=== PATIENT | male | born 1965 | race Caucasian/White ===

== ENCOUNTER 2021-03-27 18:39 | Emergency (ER) | payer OTHER ==
[~2021-03-27] VITALS: Ht 180.3 cm; Wt 95.3 kg
[2021-03-27] MEDS ORDERED: ZESTRIL30 MG (18:50)
[2021-03-27] MEDS ORDERED: SINGULAIR10 MG (18:50)
[2021-03-27] MEDS ORDERED: LIPITOR40 M1 (18:51)
[2021-03-27] MEDS ORDERED: ANALPRAM HC 1%30 GM TOP (20:02)
[2021-03-27] MEDS ORDERED: NEURONTIN300 MG PO (20:02)
== END 2021-03-27 20:06 | disposition home or self-care (01) ==
LOC: ER 18:39
DX: K64.8 Other hemorrhoids (principal)

== ENCOUNTER → 2021-06-19 08:00 | Outpatient (CLI) | payer OTHER ==
[~2021-06-19 08:00] MED LIST: ANALPRAM HC 1%30 GM TOP; LIPITOR40 M1; NEURONTIN300 MG PO; SINGULAIR10 MG; ZESTRIL30 MG
== END | disposition home or self-care (01) ==
LOC: LAB 08:00 → ADM 15:15 → AMB-ENDOS 06-26 15:15 → EDSTATUS 06-26 15:15
PROVIDERS: ATTEND Surgery
DX: K62.5 Hemorrhage of anus and rectum (principal); Z03.818 Encounter for observation for suspected exposure to other biological agents ruled out; Z86.010 Personal history of colon polyps

== ENCOUNTER 2021-08-07 07:14 | Day surgery (SDC) | payer OTHER | END 2021-08-07 13:00 | disposition home or self-care (01) | LOC: AMB-ENDOS 07:14 | PROVIDERS: ATTEND Surgery | DX: K62.89 Other specified diseases of anus and rectum (principal); Z20.822 Contact with and (suspected) exposure to COVID-19 ==